=== PATIENT | female | born 1955 | race Caucasian/White ===

== ENCOUNTER 2016-03-30 06:23 | Day surgery (SDC) | payer OTHER ==
[~2016-03-30] VITALS: Ht 154.9 cm; Wt 77.2 kg
[~2016-03-30 06:23] MED LIST: ASPIR 8181 M1 PO; BAYER ASPIRIN325 M1 PO; COLACE100 MG PO; KLONOPIN0.5 M1 PO; LIPITOR80 MG PO; LOPRESSOR25 MG PO; NORVASC2.5 MG PO; PERCOCET 5/31 TABLET PO; SIMVASTATIN40 M1 PO; ZETIA10 MG PO; ZOFRAN4 MG PO
[2016-03-30 07:10] VITALS: BP 120/58
[2016-03-30] MEDS ORDERED: NORCO 5/3251 TABLET PO (11:32)
[2016-03-30 13:07] VITALS: BP 122/66
[2016-03-30 14:06] VITALS: BP 110/53
== END 2016-03-30 14:25 | disposition home or self-care (01) ==
LOC: SDC 06:23
PROC: 0HBU0ZZ Excision of Left Breast, Open Approach (ICD-10-PCS; principal; 2016-03-30)
DX: C50.912 Malignant neoplasm of unspecified site of left female breast (principal); Z17.0 Estrogen receptor positive status [ER+]; I77.9 Disorder of arteries and arterioles, unspecified; I25.10 Atherosclerotic heart disease of native coronary artery without angina pectoris; E78.5 Hyperlipidemia, unspecified; R39.15 Urgency of urination
CPT/HCPCS: 88307; 93005; J0690; J1100; J2405; J2765; J3010

== ENCOUNTER 2017-07-25 20:52 | Inpatient (IN) | payer OTHER ==
[~2017-07-25] VITALS: Ht 160 cm; Wt 69.0 kg
[~2017-07-25 20:52] MED LIST changes: +NORCO 5/3251 TABLET PO
[2017-07-25 21:15] LABS: HEMATOCRIT 40.7 % (36.0-46.0); HEMOGLOBIN 13.7 G/DL (11.9-15.5); MCH 30.8 PG (29.0-34.0); MCHC 33.7 G/DL (30.0-36.0); MCV 91.5 FL (83-99); PLATELET COUNT 214 K/uL (156-360); RBC DIS.WIDTH-CV 13.7 % (11.8-14.6); RBC DIS.WIDTH-SD 46.4 % (39-53); RED BLOOD COUNT 4.45 M/uL (3.80-5.20); WHITE BLOOD COUNT 9.2 K/uL (4.1-10.2)
[2017-07-25 21:22] LABS: CHLORIDE 106 mEq/L (99-109); POTASSIUM 3.8 mEq/L (3.7-5.4); SODIUM 144 mEq/L (136-147)
[2017-07-25 21:24] LABS: GLUCOSE 115 mg/dL (70-99)
[2017-07-25 21:28] LABS: CREATININE 0.9 mg/dL (0.6-1.3); GFR ESTIMATE (CALCULATED) > 59 mL/min/
[2017-07-25 21:29] LABS: UREA NITROGEN (BUN) 11 mg/dL (9-23)
[2017-07-25 21:34] LABS: TROP-I INTERPRETATION NEGATIVE; TROPONIN-I 0.02 ng/mL (0.0-0.30)
[2017-07-26] MEDS ORDERED: FEMARA2.5 MG PO (00:46)
[2017-07-26 02:38] VITALS: BP 105/58
[2017-07-26 07:08] VITALS: BP 93/51
[2017-07-26 08:26] LABS: HEMATOCRIT 38.6 % (36.0-46.0); HEMOGLOBIN 12.7 G/DL (11.9-15.5); MCH 30.1 PG (29.0-34.0); MCHC 32.9 G/DL (30.0-36.0); MCV 91.5 FL (83-99); PLATELET COUNT 204 K/uL (156-360); RBC DIS.WIDTH-CV 13.9 % (11.8-14.6); RBC DIS.WIDTH-SD 46.8 % (39-53); RED BLOOD COUNT 4.22 M/uL (3.80-5.20)
[2017-07-26 08:47] LABS: CHLORIDE 112 MEQ/L (99-109); CREATININE 0.6 MG/DL (0.6-1.3); GFR ESTIMATE (CALCULATED) > 59 mL/min/; GLUCOSE 161 mg/dL (70-99); POTASSIUM 3.9 MEQ/L (3.7-5.4); SODIUM 143 MEQ/L (136-147); UREA NITROGEN (BUN) 9 mg/dL (9-23)
[2017-07-26 15:12] VITALS: BP 116/54
[2017-07-26 17:51] LABS: APPEARANCE CLEAR ((CLEAR)); BILIRUBIN NEGATIVE; BLOOD NEGATIVE; COLOR YELLOW ((YELLOW)); GLUCOSE (STRIP) NEGATIVE; KETONES NEGATIVE; LEUKOCYTES NEGATIVE; NITRITE NEGATIVE; PROTEIN (STRIP) NEGATIVE; SPECIFIC GRAVITY 1.035 (1.000-1.030); UROBILINOGEN 0.2 MG/DL (0.2-1.0)
[2017-07-26 23:47] VITALS: BP 95/50
[2017-07-27 03:53] VITALS: BP 100/51
[2017-07-27 05:31] LABS: HEMOGLOBIN 11.8 G/DL (11.9-15.5); MCH 29.6 PG (29.0-34.0); MCHC 32.8 G/DL (30.0-36.0); MCV 90.2 FL (83-99); PLATELET COUNT 215 K/uL (156-360); RBC DIS.WIDTH-CV 13.7 % (11.8-14.6); RBC DIS.WIDTH-SD 45.9 % (39-53); RED BLOOD COUNT 3.99 M/uL (3.80-5.20); WHITE BLOOD COUNT 16.4 K/uL (4.1-10.2)
[2017-07-27 06:02] LABS: CHLORIDE 110 MEQ/L (99-109); CREATININE 0.6 MG/DL (0.6-1.3); GFR ESTIMATE (CALCULATED) > 59 mL/min/; GLUCOSE 134 mg/dL (70-99); SODIUM 144 MEQ/L (136-147); UREA NITROGEN (BUN) 12 mg/dL (9-23)
[2017-07-27 07:44] VITALS: BP 101/57
[2017-07-27 12:20] VITALS: BP 107/54
[2017-07-27 15:12] VITALS: BP 112/53
[2017-07-27 19:32] VITALS: BP 119/59
[2017-07-28] VITALS (7 sets, daily range): BP systolic 101–136; BP diastolic 54–75
[2017-07-28 06:14] LABS: BASOPHIL (%) 0.2 % (0-1); EOSINOPHIL (%) 0 % (0-5); HEMATOCRIT 38.3 % (36.0-46.0); HEMOGLOBIN 12.2 G/DL (11.9-15.5); IMMATURE GRANULOCYTE (%) 1.3 % (0.0-0.7); LYMPHOCYTE (%) 10.7 % (15-42); LYMPHOCYTE COUNT 1.7 K/uL (1.0-2.8); MCHC 31.9 G/DL (30.0-36.0); MCV 91.2 FL (83-99); MONOCYTE (%) 3.8 % (3-12); MONOCYTE COUNT 0.6 K/uL (0-0.8); NEUTROPHIL COUNT 13.5 K/uL (1.8-6.4); PLATELET COUNT 227 K/uL (156-360); RBC DIS.WIDTH-SD 47.2 % (39-53); WHITE BLOOD COUNT 16.1 K/uL (4.1-10.2)
[2017-07-28 06:56] LABS: CHLORIDE 111 MEQ/L (99-109); CREATININE 0.6 MG/DL (0.6-1.3); GFR ESTIMATE (CALCULATED) > 59 mL/min/; GLUCOSE 108 mg/dL (70-99); POTASSIUM 4.2 MEQ/L (3.7-5.4); SODIUM 148 MEQ/L (136-147); UREA NITROGEN (BUN) 16 mg/dL (9-23)
[2017-07-29 03:46] VITALS: BP 140/70
[2017-07-29 05:22] LABS: BASOPHIL (%) 0.3 % (0-1); EOSINOPHIL (%) 0.1 % (0-5); HEMATOCRIT 36.5 % (36.0-46.0); HEMOGLOBIN 11.9 G/DL (11.9-15.5); IMMATURE GRANULOCYTE (%) 1.7 % (0.0-0.7); LYMPHOCYTE (%) 27.4 % (15-42); LYMPHOCYTE COUNT 3.2 K/uL (1.0-2.8); MCH 29.2 PG (29.0-34.0); MCHC 32.6 G/DL (30.0-36.0); MCV 89.7 FL (83-99); MONOCYTE (%) 5.1 % (3-12); MONOCYTE COUNT 0.6 K/uL (0-0.8); NEUTROPHIL (%) 65.4 % (45-76); NEUTROPHIL COUNT 7.6 K/uL (1.8-6.4); PLATELET COUNT 211 K/uL (156-360); RBC DIS.WIDTH-CV 13.7 % (11.8-14.6); RBC DIS.WIDTH-SD 45.3 % (39-53); RED BLOOD COUNT 4.07 M/uL (3.80-5.20); WHITE BLOOD COUNT 11.6 K/uL (4.1-10.2)
[2017-07-29 06:16] LABS: CHLORIDE 106 MEQ/L (99-109); CREATININE 0.6 MG/DL (0.6-1.3); GFR ESTIMATE (CALCULATED) > 59 mL/min/; GLUCOSE 92 mg/dL (70-99); POTASSIUM 3.5 MEQ/L (3.7-5.4); SODIUM 145 MEQ/L (136-147); UREA NITROGEN (BUN) 15 mg/dL (9-23)
[2017-07-29 07:38] VITALS: BP 150/66
[2017-07-29] MEDS ORDERED: CEFTIN500 MG PO (11:27)
[2017-07-29] MEDS ORDERED: NICOTINE PATCH1 EACH TD (11:27)
[2017-07-29] MEDS ORDERED: PROAIR RESPICL90 MCG IH (11:27)
[2017-07-29] MEDS ORDERED: GUAIFENESI100 MG/5 M PO (11:27)
[2017-07-29] MEDS ORDERED: PREDNISONE20 MG PO (11:28)
[2017-07-29 12:42] VITALS: BP 124/61
[2017-07-29 16:12] LABS: C DIFF TOXIN NEGATIVE (NEGATIVE)
== END 2017-07-29 14:00 | disposition home or self-care (01) | DRG 190 ==
LOC: EME 20:52 → EDOF 07-26 01:35 → 5SOUTH 07-26 01:35 → ENRESERV 07-26 01:36 → 5SOUTH 07-26 02:37
PROVIDERS: Internal Medicine
DX: J44.0 Chronic obstructive pulmonary disease with (acute) lower respiratory infection (principal); J18.9 Pneumonia, unspecified organism; R09.02 Hypoxemia; I25.10 Atherosclerotic heart disease of native coronary artery without angina pectoris; I10 Essential (primary) hypertension; Z85.3 Personal history of malignant neoplasm of breast; Z95.1 Presence of aortocoronary bypass graft; Z90.710 Acquired absence of both cervix and uterus; Z79.82 Long term (current) use of aspirin; Z79.899 Other long term (current) drug therapy; F17.200 Nicotine dependence, unspecified, uncomplicated; Z71.6 Tobacco abuse counseling; J44.9 Chronic obstructive pulmonary disease, unspecified; E78.5 Hyperlipidemia, unspecified; Z87.442 Personal history of urinary calculi; I48.91 Unspecified atrial fibrillation; E66.9 Obesity, unspecified; E87.6 Hypokalemia; J44.1 Chronic obstructive pulmonary disease with (acute) exacerbation
CPT/HCPCS: 71046; 71275; 80048; 81003; 82306; 83605; 84484; 85025; 85027; 87040; 87449; 87493; 93005; 94640; 94640 76; 94799; 99202; 99281; 99285; J0696; J1650; J1956; J2930; J3475; J7030; J7512